=== PATIENT | female | born 1980 | race African-American/Black ===

== ENCOUNTER 2019-12-29 20:11 | Emergency (ER) | payer SELFPAY ==
--- NOTE | 2019-12-29 20:17 | ECG_ITS ---
Test Reason : CHEST PAIN Blood Pressure : / mmHG Vent. Rate : 090 BPM Atrial Rate : 090 BPM P-R Int : 172 ms QRS Dur : 090 ms QT Int : 374 ms P-R-T Axes : 032 -04 014 degrees QTc Int : 457 ms Normal sinus rhythm Minimal voltage criteria for LVH, may be normal variant Nonspecific T wave abnormality Abnormal ECG No previous ECGs available Referred By: Coy Ochoa Electronically Signed By:GABY EASON MD
[2019-12-29 20:18] VITALS: BP 151/95; PULSE 92; RESP 20; TEMP 36.8; O2SAT 99; BMI 34.2
[2019-12-29 21:09] LABS: MANUAL DIFF FLAG NO
[2019-12-29 21:14] LABS: Basophils Percent Auto 0.3 % (0-2); Eosinophils Absolute Auto 0.1 X10*3/uL (0.0-0.4); Eosinophils Percent Auto 1.7 % (0-4); Hematocrit 38.3 % (37-47); Hemoglobin 12.8 g/dl (12.0-16.0); Imm Gran Abs Auto 0.02 X10*3/uL (0.00-0.03); Imm Gran Pct Auto 0.3 % (0.0-0.4); Lymphocytes Absolute Auto 2.1 X10*3/uL (1.2-4.9); Lymphocytes Percent Auto 26.2 % (20-40); Mean Corpuscular HGB Conc 33.4 g/dl (31.0-35.0); Mean Corpuscular Hemoglobin 27.2 pg (27.0-33.0); Mean Corpuscular Volume 81.3 fL (80-98); Mean Platelet Volume 9.8 fL (9.4-12.3); Monocytes Absolute Auto 0.6 X10*3/uL (0.1-1.2); Monocytes Percent Auto 7.3 % (2-11); Neutrophils Percent Auto 64.2 % (45-73); Platelet Count 332 X10*3/uL (160-400); Red Blood Count 4.71 X10*6/uL (4.20-5.50); Red Cell Distribution Width 13.3 % (11.0-16.0); White Blood Count 7.8 X10*3/uL (4.8-10.8)
--- NOTE | 2019-12-29 21:14 | ED.GENADULT ---
HPI - General Adult General Chief complaint: General Medical Stated complaint: chest pressure Time Seen by Provider: 12/29/19 20:17 Source: patient Mode of arrival: ambulatory Limitations: no limitations History of Present Illness HPI narrative: patient has history of SVT had Holter monitoring 2 weeks ago which showed heart rate of 150 also has a history of hypertension and chest pain off and on for last few months patient been to [facility] and different ERs further workup and it was negative for any coronary artery disease. Today around 16:30 while at work patient noticed sharp pain left side checked her blood pressure was 170/140 took her hydrochlorothiazide 25 mg comes here with blood pressure of 151/95 with pulse rate of 92 Onset (ago): hour(s) (4) Location: chest Radiation: extremity ( left) Severity: mild and similar to prior episodes Quality: sharp Pain Consistency: now resolved Relieving factors: none Exacerbating factors: none Associated symptoms: denies other symptoms Related Data Allergies Allergy/AdvReac Type Severity Reaction Status Date / Time No Known Allergies Allergy Verified 12/29/19 20:25 [No Known Allergies*] Review of Systems Review of Systems: REVIEW OF SYSTEMS: Pertinent positives and negatives are stated above in the history. GEN: no fevers, chills, fatigue HEENT: no nasal congestion, sore throat, ear pain NEURO: no headache, dizziness, focal weakness PULM: no cough, shortness of breath CV: no palpitations, LE edema ABD: no abdominal pain, nausea, vomiting, diarrhea : no dysuria, urgency, frequency SKIN: no rash ROS otherwise negative x 10 PMFSH Past Medical History Medical History HTN (hypertension) Social History Social History Alcohol intake: never Smoking Status: Former smoker Smoked in Last 30 Days: No Use of substances other than those prescribed or required for medical reasons: No Advance Directives: No Advance Directives Information Provided: Yes Physical Exam Vital Signs: Vital Signs: Vital Signs Temp Pulse Resp BP Pulse Ox 12/29/19 21:35 98.6 F 105 H 21 H 140/91 H 100 12/29/19 20:18 98.2 F 92 20 151/95 H 99 Body Mass Index 34.2 VITAL SIGNS: Reviewed. GENERAL: Well developed, well nourished, in no acute distress. HEAD: Normocephalic/atraumatic, EYES: PERRLA No pallor/icterus noted NOSE: Nares patent bilateral OROPHARYNX: Oral mucosa moist no oral lesions NECK: Supple, no adenopathy LUNGS: Normal breath sounds. No adventitious sounds or accessory muscle use left anterior chest wall tenderness on palpation CARDIOVASCULAR: Regular rate and rhythm without noted murmurs, no JVD or lower extremity edema. ABDOMEN: Soft, non-tender, non-distended with bowel sounds. No rigidity. No guarding. No palpable masses or hernias noted MUSCULOSKELETAL: No tenderness, deformities, EXTREMITIES: No cyanosis or edema. SKIN: no rashes, ulcerations, jaundice, pallor, or petechiae NEUROLOGIC: Alert and oriented x 3. Strength and sensation to light touch were grossly intact Course Course Course Narrative: patient with atypical left-sided chest pain which is going on for few months been to different ER several times with workup negative had episode of SVT few weeks ago and had a Holter monitoring 2 weeks ago which showed heart rate of 150 patient plan to see user experience analyst next week already on Lopressor and hydrochlorothiazide. Patient high sensitive troponin is negative EKG is no acute ischemic changes patient chest pain is clinically noncardiac will discharge patient home to follow-up with primary care doctor/user experience analyst Medical Decision Making Lab Data Result diagrams: 12/29/19 21:04 12/29/19 21:04 Labs: Lab Results 12/29/19 12/29/19 12/29/19 Range/Units 21:04 21:04 21:04 WBC 7.8 (4.8-10.8) X10*3/uL RBC 4.71 (4.20-5.50) X10*6/uL Hgb 12.8 (12.0-16.0) g/dl Hct 38.3 (37-47) % MCV 81.3 (80-98) fL MCH 27.2 (27.0-33.0) pg MCHC 33.4 (31.0-35.0) g/dl RDW 13.3 (11.0-16.0) % Plt Count 332 (160-400) X10*3/uL MPV 9.8 (9.4-12.3) fL Immature Gran % (Auto) 0.3 (0.0-0.4) % Neut % (Auto) 64.2 (45-73) % Lymph % (Auto) 26.2 (20-40) % Anson % (Auto) 7.3 (2-11) % Eos % (Auto) 1.7 (0-4) % Baso % (Auto) 0.3 (0-2) % Lymph # (Auto) 2.1 (1.2-4.9) X10*3/uL Anson # (Auto) 0.6 (0.1-1.2) X10*3/uL Eos # (Auto) 0.1 (0.0-0.4) X10*3/uL Baso # (Auto) 0.0 (0.0-0.2) X10*3/uL Abs Immat Gran (auto) 0.02 (0.00-0.03) X10*3/uL Absolute Neuts (auto) 5.0 (2.0-8.3) X10*3/uL Absolute Nucleated RBC 0.000 (0.0-0.012) X10*3/uL Nucleated RBC % (auto) 0.0 (0.0-0.2) /100WBC Sodium 139 (135-145) mmol/L Potassium 3.6 (3.3-5.1) mmol/l Chloride 97 (96-108) mmol/L Carbon Dioxide 33 H (22-29) mmol/L Anion Gap 13 (12-20) BUN 16 (9-16) mg/dL Creatinine 1.05 (0.5-1.4) mg/dL Estim Creat Clear Calc 89.1 Estimated GFR 58 Random Glucose 89 (60-115) mg/dL Calcium 8.5 (8.4-10.2) mg/dL Troponin I High Sens < 3.5 (<3.5-17.0) ng/L ECG Data Attestation: I personally reviewed and interpreted this ECG as follows: Prior ECG tracings: not available for review Interpretation: normal sinus rhythm with heart rate of 90 normal intervals voltage criteria for LVH present nonspecific specific T-wave changes, impression no acute ischemic changes Discharge Plan Discharge Clinical Impression: Chest pain Qualifiers: Chest pain type: unspecified Qualified Code(s): R07.9 - Chest pain, unspecified Patient Disposition: Home, Self-Care Instructions: Chest Pain (ED) Additional Instructions: take baby aspirin 81 mg daily until seen by user experience analyst for further evaluation Interventions: ED Discharge Assessment Last Done: 12/29/19 21:53 Discharge Date/Time: 12/29/19 22:01
[2019-12-29 21:34] LABS: Anion Gap 13 (12-20); Blood Urea Nitrogen 16 mg/dL (9-16); Calcium 8.5 mg/dL (8.4-10.2); Carbon Dioxide 33 mmol/L (22-29); Chloride 97 mmol/L (96-108); Creatinine Clr Calc Pharmacy 89.1; Estimated Glomerular Filt Rate 58; Glucose Random 89 mg/dL (60-115); Potassium 3.6 mmol/l (3.3-5.1); Sodium 139 mmol/L (135-145)
[2019-12-29 21:35] VITALS: BP 140/91; PULSE 105; RESP 21; TEMP 37; O2SAT 100
[2019-12-29 21:41] LABS: Troponin-I High Sensitivity < 3.5 ng/L (<3.5-17.0)
== END 2019-12-29 22:01 | disposition home or self-care (01) ==
PROVIDERS: Emergency Provider Internal Medicine; PCP Internal Medicine
DX: R07.9 Chest pain, unspecified (principal); I10 Essential (primary) hypertension; Z87.891 Personal history of nicotine dependence
CPT/HCPCS: 36415; 80048; 84484; 85025; 93005; 99283; 99284